=== PATIENT | female | born 1990 | race Caucasian/White ===

== ENCOUNTER 2024-01-25 10:53 | Outpatient (CLI) | payer BC, SELFPAY ==
[2024-01-25 12:07] LABS: Abs Immature Grans 0.02 10^3/uL (0.0-0.06); Absolute Basophil Count 0.04 10^3/uL (0.0-0.2); Absolute Eosinophil Count 0.05 10^3/uL (0.0-0.7); Absolute Lymphocyte Count 1.37 10^3/uL (1.2-3.4); Absolute Monocyte Count 0.29 10^3/uL (0.1-0.8); Absolute Neutrophil Count 3.97 10^3/uL (1.2-6.7); Basophils % 0.7; Eosinophils % 0.9; HCT 41.3 % (36.0-46.0); HGB 13.9 g/dL (11.2-15.7); Immature Grans % 0.3; Lymphocytes % 23.9; MCH 31.6 pg (27.0-33.0); MCHC 33.7 % (32.0-36.0); MCV 94 fL (80-95); MPV 12.1 fL (8.0-11.0); Monocytes % 5.1; Neutrophils % 69.1; Platelet Count 163 10^3/uL (130-400); RDW 11.3 % (11.7-14.6); RDW-SD 38.9 fL; WBC 5.74 10^3/uL (4.4-10.8)
[2024-01-25 13:04] LABS: Vitamin D 25 Total 32.2 ng/mL (30-100)
[2024-01-25 13:07] LABS: ALT 17 U/L (14-59); AST 12 U/L (15-37); Alkaline Phosphatase 69 U/L (46-116); Anion Gap 8.9 mmol/L (3-11); BUN 12 mg/dL (7-18); Bilirubin, Total 0.9 mg/dL (0.2-1.0); CO2 26.1 mmol/L (21.0-32.0); CREATININE 0.8 mg/dL (0.55-1.02); Calcium 9.2 mg/dL (8.5-10.1); Calculated LDL 84 mg/dL (<100); Chloride 104 mmol/L (98-107); Cholesterol 160 mg/dL (<200); Estimated GFR 99.71 (mL/min/1.73m2); Glucose 100 mg/dL (74-106); HDL Cholesterol 69 mg/dL (40-60); Magnesium 1.9 mg/dL (1.8-2.4); Potassium 4.1 mmol/L (3.5-5.1); Sodium 139 mmol/L (136-145); TSH (W/Ref FT4) 1.16 uIU/mL (0.36-3.74); Triglyceride 37 mg/dL (<150); Vitamin B12 535 pg/mL (193-986)
[2024-01-25 13:17] LABS: Hemoglobin A1C 5.1 % (<5.7)
== END 2024-01-25 10:54 | disposition home or self-care (01) ==
LOC: LBO 01-26 10:55
PROVIDERS: PCP Nurse Practitioner Family; Visit Provider Nurse Practitioner Family
DX: E78.00 Pure hypercholesterolemia, unspecified (principal); I10 Essential (primary) hypertension
CPT/HCPCS: 36415; 80053; 80061; 82306; 82607; 83036; 83735; 84443; 85025

== ENCOUNTER 2024-08-01 02:15 | Outpatient (CLI) | payer BC, SELFPAY ==
--- NOTE | 2024-08-01 15:36 | DI.MAMMO_ITS ---
Exam(s) MAMMO SCREENING EXAM: MAMMO SCREENING CLINICAL HISTORY: SCREENING, FAMILY H/O BREAST CA,Z12.31,HIGH RISK MUTATION GENE TECHNIQUE: Bilateral full field digital CC and MLO mammographic images were obtained with 3D tomosyn thesis and utilizing computer aided detection (CAD). COMPARISON: Available for comparison. FINDINGS: Masses/Architectural Distortion: There is an area of asymmetric breast tissue in the inferior right b reast on the MLO view. Microcalcifications: No suspicious pleomorphic-type are seen. Skin Thickening/Nipple Retraction: None. IMPRESSION: 1. Area of asymmetric breast tissue in the inferior right breast on the MLO view. 2. This area should be further evaluated with a spot compression view. Limited right breast ultrasou nd may be indicated at that time. BI-RADS Category 0 - Incomplete: Need additional imaging evaluation Breast Density - Category C - Heterogeneously dense Breast density category C or D implies that the patient has dense breast tissue. Dense breast tissue is very common and is not abnormal but dense breast tissue can make it harder to find cancer on a ma mmogram. Also, dense breast tissue may increase their breast cancer risk. This information about the result of the mammogram report was provided to the patient to raise their awareness. Use this report when you speak with the patient about their risks for breast cancer, which includes their family hist ory. At that time, you may recommend for more screening tests (Ultrasound or MRI) as they might be us eful based on their risk. A negative radiographic report should not delay biopsy if a dominant or clinically suspicious mass is present. Up to ten percent of cancers are not identified on mammography. A negative report may reinforce clinical impression. Adenosis and dense breasts may obscure an underlying neoplasm. False positive reports average 6 to 10%. Patient will receive a letter notifying them of these results.
== END 2024-08-01 02:35 ==
LOC: DI 02:15
PROVIDERS: PCP Nurse Practitioner Family; Visit Provider Nurse Practitioner Family
DX: Z12.31 Encounter for screening mammogram for malignant neoplasm of breast (principal); Z80.3 Family history of malignant neoplasm of breast
CPT/HCPCS: 77063; 77067

== ENCOUNTER 2024-08-09 01:49 | Outpatient (CLI) | payer BC, SELFPAY ==
--- NOTE | 2024-08-09 | DI.US_ITS ---
Exam(s) MG MAMMO SCREEN CALL BACK UNI US BREAST RT LIMITED EXAM: MG MAMMO SCREEN CALL BACK UNI CLINICAL HISTORY: Asymmetric breast tissue in inferior rt breast. TECHNIQUE: Mediolateral oblique spot compression digital Mammography views of the right breast wit h Tomosynthesis and right breast ultrasound. COMPARISON: MG MG MAMMO SCREENING from 08/01/2024 US US BREAST RT LIMITED from 08/09/2024 FINDINGS: Mammography/Tomosynthesis: Masses: Area of asymmetric tissue in the inferior right breast is less conspicuous on the spot compre ssion view. No abnormality seen on the CC view. Architectural Distortion: None seen. Microcalcifictions: No suspicious pleomorphic-type are seen. Skin Thickening/Nipple Retraction: None. Right breast US: Echotexture: Normal appearance of the glandular tissue. Shadowing: No suspicious foci. Cyst: None. Solid lesions: None seen. Ductal dilation: None. IMPRESSION: 1. No evidence of malignancy is noted. 2. Unless there is more urgent need, follow-up mammography is recommended in 6 months. 3. The findings were discussed with the patient on the date of the examination. BI-RADS Category 3 - 6 month - Probably Benign Finding: Recommend follow-up mammography in 6 months Breast Density - Category C - Heterogeneously dense A mammogram that demonstrates density of C or D indicates the patient's breast tissue is dense. Dense breast tissue is very common and is not abnormal, but dense breast tissue can make it harder to find cancer on a mammogram. Also, dense breast tissue may increase their breast cancer risk. This informa tion about the result of the mammogram report was provided to the patient to raise their awareness. U se this report when you speak with the patient about their risks for breast cancer, which includes th eir family history. At that time, you may recommend for more screening tests (Ultrasound or MRI) as t hey might be useful based on their risk. A negative radiographic report should not delay biopsy if a dominant or clinically suspicious mass is present. Up to ten percent of cancers are not identified on mammography. A negative report may reinforce clinical impression. Adenosis and dense breasts may obscure an underlying neoplasm. False positive reports average 6 to 10%. Patient will receive a letter notifying them of these results.
== END 2024-08-09 02:09 ==
LOC: DI 01:49
PROVIDERS: PCP Nurse Practitioner Family; Visit Provider Nurse Practitioner Family
DX: Z12.31 Encounter for screening mammogram for malignant neoplasm of breast (principal); R92.8 Other abnormal and inconclusive findings on diagnostic imaging of breast
CPT/HCPCS: 76642; 77063; 77067